=== PATIENT | female | born 2005 | race Caucasian/White ===

== ENCOUNTER 2025-01-09 21:50 | Emergency (ER) | payer OTHER ==
[~2025-01-09] VITALS: Ht 177.8 cm; Wt 81.6 kg
[2025-01-09 22:07] VITALS: TEMP 98.2
[2025-01-09] MEDS ORDERED: SODIUM CHLORIDE FLUSH 10 ML SYR IV PRN (22:15)
[2025-01-09 22:20] LABS: BASOPHILS % 0.3 % (0.0-1.0); EOSINOPHILS % 1.8 % (0.0-6.0); LYMPHOCYTES % 37.7 % (18.0-39.1); MONOCYTES % 7.3 % (4.4-11.3); NEUTROPHILS % 52.6 % (38.7-80.0); RED CELL DISTRIBUTION WIDTH 12.7 % (11.7-14.4)
[2025-01-09 22:25] LABS: LEUKOCYTE ESTERASE ,URINE NEGATIVE (NEGATIVE); PREGNANCY TEST, URINE NEGATIVE (NEGATIVE); PROTEIN,URINE DIPSTICK NEGATIVE (NEGATIVE); URINE UROBILINOGEN 0.2 mg/dL (0.2 - 1)
[2025-01-09 22:35] LABS: EPITHELIAL CELLS,URINE FEW /LPF
[2025-01-09 22:40] LABS: EST GLOMERULAR FILTRATION RATE 127.0 ML/MIN (>=60)
[2025-01-09] MEDS ORDERED: IOPAMIDOL 370 MG/ML 100 ML INFUS..BTL INJ ONE (22:59)
[2025-01-09] MEDS: ONDANSETRON HCL INJ 2MG/ML 2ML 2 MG/ML VIAL IV STA (23:24)
[2025-01-09] MEDS: KETOROLAC TROMETHAMINE 30 MG/ML VIAL IV STA (23:24)
[2025-01-09] MEDS: SODIUM CHLORIDE 0.9% 1000ML 1,000 ML IV ONE (23:24)
[2025-01-09 23:56] VITALS: PULSE 87; RESP 25
[2025-01-10] MEDS ORDERED: NAPROSYN500 MG PO (01:11)
[2025-01-10] MEDS ORDERED: ONDANSETRON ODT4 MG SL (01:11)
[2025-01-10 01:15] VITALS: BP 116/65; PULSE 93; RESP 21; TEMP 98.3; O2SAT 98
== END 2025-01-10 01:18 | disposition home or self-care (01) ==
LOC: ER 22:37
DX: R10.33 Periumbilical pain (principal); N83.201 Unspecified ovarian cyst, right side; R11.0 Nausea
CPT/HCPCS: 36415; 74177; 80053; 81001; 81025; 83690; 85025; 99284; J1885; J2405; J7030; Q9967